=== PATIENT | male | born 1940 | race Caucasian/White ===

== ENCOUNTER 2020-06-08 04:20 | Inpatient (IN) | payer OTHER, BC ==
[2020-06-02 14:03] VITALS: BMI 26.6
[2020-06-08] MEDS ORDERED: LIDOCAINE 1%/EPI 1:100000 (50 ML MULTI DOSE VIAL) ONE (12:51)
[2020-06-08] MEDS ORDERED: PROPOFOL 20 ML ONE (14:12)
[2020-06-08] MEDS ORDERED: MIDAZOLAM HCL 2 MG/2 ML SINGLE DOSE VIAL ONE (14:15)
[2020-06-08] MEDS ORDERED: ceFAZolin SODIUM 1 GM VIAL IVPB ONE (14:25)
[2020-06-08] MEDS ORDERED: ceFAZolin SODIUM 1 GM VIAL ONE (14:30)
[2020-06-08] MEDS ORDERED: PROMETHAZINE HCL 25 MG/1 ML VIAL IVPUSH PRN (15:59)
[2020-06-08] MEDS ORDERED: ONDANSETRON 4 MG/2 ML VIAL IVPUSH PRN (15:59)
[2020-06-08] MEDS ORDERED: LACTATED RINGERS SOLUTION 1,000 ML IV SCH (16:00)
[2020-06-08] MEDS: ACETAMINOPHEN 325 MG TABLET (FP) PO SCH ×2 (17:00→22:57)
[2020-06-08] MEDS: SODIUM CHLORIDE 1,000 ML IV SCH ×2 (17:45→18:05)
[2020-06-08] MEDS: oxyCODONE HCL 5 MG TABLET PO PRN (21:16)
[2020-06-08] MEDS: HEPARIN NA (PORCINE) 5,000 UNITS/ML 1ML VIAL SQ SCH (21:16)
[2020-06-08] MEDS: ATORVASTATIN CA 10 MG TABLET (FP) PO SCH (21:17)
[2020-06-08] MEDS: MELATONIN 5 MG TABLETS PO SCH (21:17)
[2020-06-08] MEDS: CEFAZOLIN 1 GM/D5W 1 GM/50 ML BAG IVPB SCH (21:19)
[2020-06-08] MEDS: INSULIN SLIDING SCALE (NOVOLOG) 1 VIAL SQ SCH (21:25)
[2020-06-09] MEDS: ACETAMINOPHEN 325 MG TABLET (FP) PO SCH ×4 (05:42→22:20)
[2020-06-09] MEDS: CEFAZOLIN 1 GM/D5W 1 GM/50 ML BAG IVPB SCH ×2 (05:43→13:51)
[2020-06-09] MEDS: INSULIN SLIDING SCALE (NOVOLOG) 1 VIAL SQ SCH ×4 (06:35→21:30)
[2020-06-09] MEDS: TAMSULOSIN HCL 0.4 MG CAP PO SCH (08:22)
[2020-06-09] MEDS: HYDROCHLOROTHIAZIDE 12.5 MG CAPSULE (FP) PO SCH (09:23)
[2020-06-09] MEDS: LISINOPRIL 10 MG TABLET PO SCH (09:23)
[2020-06-09] MEDS: oxyCODONE HCL 5 MG TABLET PO PRN (09:23)
[2020-06-09] MEDS: DOCUSATE SODIUM 100 MG CAPSULE (FP) PO SCH (09:23)
[2020-06-09] MEDS: HEPARIN NA (PORCINE) 5,000 UNITS/ML 1ML VIAL SQ SCH ×2 (10:05→21:23)
[2020-06-09] MEDS ORDERED: INSULIN (NOVOLOG) ASPART 100 UNITS/ML 10ML VIAL ONE (11:51)
[2020-06-09 11:54] LABS: BASO % 0.8 % (0-2.0); EOS % 1.1 % (0-4.5); HEMOGLOBIN 11.7 GM/dL (11.7-16.9); LYMPH % 12.7 % (8-40); MCH 29.8 pg (25.7-33.7); MCHC 32.6 g/dl (32.0-35.9); MEAN CELL VOLUME 91.4 fl (80-96); MONO % 13.9 % (3.8-10.2); NEUT % 71.5 % (42.8-82.8); PLATELET COUNT 125 K/MM3 (134-434); RBC 3.94 M/mm3 (4.00-5.60); RDW 16.6 % (11.9-15.9); WHITE BLOOD COUNT 4.6 K/mm3 (4.0-10.0)
[2020-06-09 12:18] LABS: ALBUMIN 3.5 g/dl (3.4-5.0); BLOOD UREA NITROGEN 39.1 mg/dL (7-18)
[2020-06-09 12:21] LABS: CREATININE 1.3 mg/dL (0.55-1.3)
[2020-06-09 12:22] LABS: BILIRUBIN,TOTAL 0.4 mg/dL (0.2-1); TOT PROT 6.3 g/dl (6.4-8.2)
[2020-06-09] MEDS: SODIUM CHLORIDE 1,000 ML IV SCH (16:52)
[2020-06-09] MEDS: ATORVASTATIN CA 10 MG TABLET (FP) PO SCH (21:22)
[2020-06-09] MEDS: MELATONIN 5 MG TABLETS PO SCH (21:23)
[2020-06-10] MEDS: INSULIN SLIDING SCALE (NOVOLOG) 1 VIAL SQ SCH ×4 (06:32→21:44)
[2020-06-10] MEDS: ACETAMINOPHEN 325 MG TABLET (FP) PO SCH ×4 (06:33→22:02)
[2020-06-10 10:00] LABS: BASO % 0.6 % (0-2.0); EOS % 0.6 % (0-4.5); HEMATOCRIT 31.9 % (35.4-49); HEMOGLOBIN 10.7 GM/dL (11.7-16.9); LYMPH % 10.9 % (8-40); MCH 30.3 pg (25.7-33.7); MCHC 33.4 g/dl (32.0-35.9); MEAN CELL VOLUME 90.7 fl (80-96); MEAN PLT VOLUME 8.8 fl (7.5-11.1); MONO % 12.3 % (3.8-10.2); NEUT % 75.6 % (42.8-82.8); PLATELET COUNT 112 K/MM3 (134-434); RBC 3.52 M/mm3 (4.00-5.60); RDW 16.7 % (11.9-15.9); WHITE BLOOD COUNT 5.4 K/mm3 (4.0-10.0)
[2020-06-10] MEDS: HEPARIN NA (PORCINE) 5,000 UNITS/ML 1ML VIAL SQ SCH ×2 (10:01→21:33)
[2020-06-10] MEDS: LISINOPRIL 10 MG TABLET PO SCH (10:01)
[2020-06-10] MEDS: HYDROCHLOROTHIAZIDE 12.5 MG CAPSULE (FP) PO SCH (10:02)
[2020-06-10] MEDS: DOCUSATE SODIUM 100 MG CAPSULE (FP) PO SCH (10:02)
[2020-06-10] MEDS: TAMSULOSIN HCL 0.4 MG CAP PO SCH (10:02)
[2020-06-10 10:29] LABS: ALBUMIN 2.9 g/dl (3.4-5.0); CALCIUM 8.3 mg/dL (8.5-10.1)
[2020-06-10 10:30] LABS: BLOOD UREA NITROGEN 33.6 mg/dL (7-18); MAGNESIUM 1.8 mg/dL (1.8-2.4)
[2020-06-10 10:33] LABS: CREATININE 1.3 mg/dL (0.55-1.3)
[2020-06-10 10:34] LABS: TOT PROT 5.3 g/dl (6.4-8.2)
[2020-06-10 10:37] LABS: BILIRUBIN,TOTAL 0.4 mg/dL (0.2-1)
[2020-06-10] MEDS: oxyCODONE HCL 5 MG TABLET PO PRN ×2 (13:32→21:31)
[2020-06-10] MEDS: ATORVASTATIN CA 10 MG TABLET (FP) PO SCH (21:32)
[2020-06-10] MEDS: MELATONIN 5 MG TABLETS PO SCH (21:32)
[2020-06-11] MEDS ORDERED: ACETAMINOPHEN 1000 MG/100 ML BAG IVPB ONE (04:30)
[2020-06-11] MEDS: ACETAMINOPHEN 325 MG TABLET (FP) PO SCH ×4 (05:09→22:30)
[2020-06-11] MEDS: INSULIN SLIDING SCALE (NOVOLOG) 1 VIAL SQ SCH ×4 (06:10→22:40)
[2020-06-11 06:36] LABS: EPI CELLS 8 /uL (0-25.1); HYALINE CASTS 2 /uL (0-3.1); PH,URINE 5.5 (5.0-8.0); URINE APPEARANCE CLEAR; URINE BACTERIA 31 /uL (0-1359); URINE BILIRUBIN NEGATIVE (NEGATIVE); URINE COLOR YELLOW; URINE GLUCOSE (UA) NEGATIVE (NEGATIVE); URINE KETONE TRACE (NEGATIVE); URINE LEUK ESTERASE NEGATIVE (NEGATIVE); URINE NITRITE NEGATIVE (NEGATIVE); URINE PROTEIN 3+ (NEGATIVE); URINE RBC 18 /uL (0-23.9); URINE UROBILINOGEN 0.2 mg/dL (0.2-1.0); URINE WBC 11 /uL (0-25.8)
[2020-06-11 09:30] LABS: BASO % 0.3 % (0-2.0); EOS % 0.2 % (0-4.5); HEMATOCRIT 31.8 % (35.4-49); HEMOGLOBIN 10.6 GM/dL (11.7-16.9); MCH 30.3 pg (25.7-33.7); MCHC 33.4 g/dl (32.0-35.9); MEAN CELL VOLUME 90.7 fl (80-96); MEAN PLT VOLUME 8.5 fl (7.5-11.1); MONO % 9.4 % (3.8-10.2); NEUT % 81.1 % (42.8-82.8); PLATELET COUNT 111 K/MM3 (134-434); RBC 3.51 M/mm3 (4.00-5.60); RDW 16.7 % (11.9-15.9); WHITE BLOOD COUNT 6.4 K/mm3 (4.0-10.0)
[2020-06-11 09:32] LABS: BLOOD UREA NITROGEN 37.7 mg/dL (7-18); CALCIUM 8.2 mg/dL (8.5-10.1)
[2020-06-11 09:33] LABS: MAGNESIUM 1.6 mg/dL (1.8-2.4)
[2020-06-11 09:34] LABS: ALBUMIN 2.7 g/dl (3.4-5.0)
[2020-06-11 09:36] LABS: PHOSPHOROUS 3.3 mg/dL (2.5-4.9)
[2020-06-11 09:37] LABS: BILIRUBIN,TOTAL 0.5 mg/dL (0.2-1); CREATININE 1.5 mg/dL (0.55-1.3); TOT PROT 5.3 g/dl (6.4-8.2)
[2020-06-11] MEDS: LISINOPRIL 10 MG TABLET PO SCH (10:17)
[2020-06-11] MEDS: HYDROCHLOROTHIAZIDE 12.5 MG CAPSULE (FP) PO SCH (10:17)
[2020-06-11] MEDS: TAMSULOSIN HCL 0.4 MG CAP PO SCH (10:17)
[2020-06-11] MEDS: DOCUSATE SODIUM 100 MG CAPSULE (FP) PO SCH (10:17)
[2020-06-11] MEDS: HEPARIN NA (PORCINE) 5,000 UNITS/ML 1ML VIAL SQ SCH ×2 (10:23→22:31)
[2020-06-11] MEDS: ATORVASTATIN CA 10 MG TABLET (FP) PO SCH (22:30)
[2020-06-11] MEDS: MELATONIN 5 MG TABLETS PO SCH (22:30)
[2020-06-12] MEDS: ACETAMINOPHEN 325 MG TABLET (FP) PO SCH ×4 (06:29→22:41)
[2020-06-12] MEDS: INSULIN SLIDING SCALE (NOVOLOG) 1 VIAL SQ SCH ×4 (06:33→22:56)
[2020-06-12] MEDS ORDERED: MAGNESIUM OXIDE 400 MG TABLET (FP) PO ONE (08:15)
[2020-06-12] MEDS ORDERED: SODIUM CHLORIDE 1,000 ML IV SCH (08:15)
[2020-06-12 08:42] LABS: BASO % 0.2 % (0-2.0); EOS % 1.7 % (0-4.5); HEMATOCRIT 31.6 % (35.4-49); HEMOGLOBIN 10.3 GM/dL (11.7-16.9); LYMPH % 8.2 % (8-40); MCH 29.6 pg (25.7-33.7); MCHC 32.5 g/dl (32.0-35.9); MEAN CELL VOLUME 91.1 fl (80-96); MEAN PLT VOLUME 8.4 fl (7.5-11.1); MONO % 7.4 % (3.8-10.2); NEUT % 82.5 % (42.8-82.8); PLATELET COUNT 114 K/MM3 (134-434); RBC 3.47 M/mm3 (4.00-5.60); RDW 16.5 % (11.9-15.9); WHITE BLOOD COUNT 5.6 K/mm3 (4.0-10.0)
[2020-06-12 09:02] LABS: BLOOD UREA NITROGEN 40.4 mg/dL (7-18); CALCIUM 8.4 mg/dL (8.5-10.1)
[2020-06-12 09:06] LABS: CREATININE 1.5 mg/dL (0.55-1.3)
[2020-06-12] MEDS: HYDROCHLOROTHIAZIDE 12.5 MG CAPSULE (FP) PO SCH (09:54)
[2020-06-12] MEDS: DOCUSATE SODIUM 100 MG CAPSULE (FP) PO SCH (09:54)
[2020-06-12] MEDS: TAMSULOSIN HCL 0.4 MG CAP PO SCH (09:54)
[2020-06-12] MEDS: HEPARIN NA (PORCINE) 5,000 UNITS/ML 1ML VIAL SQ SCH ×2 (09:54→22:43)
[2020-06-12] MEDS: oxyCODONE HCL 5 MG TABLET PO PRN (10:12)
[2020-06-12] MEDS: MELATONIN 5 MG TABLETS PO SCH (22:41)
[2020-06-12] MEDS: ATORVASTATIN CA 10 MG TABLET (FP) PO SCH (22:41)
[2020-06-13] MEDS: ACETAMINOPHEN 325 MG TABLET (FP) PO SCH ×4 (06:56→22:58)
[2020-06-13] MEDS: INSULIN SLIDING SCALE (NOVOLOG) 1 VIAL SQ SCH ×4 (07:04→22:05)
[2020-06-13] MEDS ORDERED: INSULIN (NOVOLOG) ASPART 100 UNITS/ML 10ML VIAL ONE ×2 (07:26→11:09)
[2020-06-13] MEDS: DOCUSATE SODIUM 100 MG CAPSULE (FP) PO SCH (09:15)
[2020-06-13] MEDS: LISINOPRIL 10 MG TABLET PO SCH (09:15)
[2020-06-13] MEDS: HEPARIN NA (PORCINE) 5,000 UNITS/ML 1ML VIAL SQ SCH ×2 (09:15→21:38)
[2020-06-13] MEDS: TAMSULOSIN HCL 0.4 MG CAP PO SCH (09:15)
[2020-06-13] MEDS: HYDROCHLOROTHIAZIDE 12.5 MG CAPSULE (FP) PO SCH (09:15)
[2020-06-13 09:17] LABS: BASO % 0.4 % (0-2.0); EOS % 3.6 % (0-4.5); HEMATOCRIT 32.6 % (35.4-49); HEMOGLOBIN 10.7 GM/dL (11.7-16.9); LYMPH % 11.7 % (8-40); MCH 29.8 pg (25.7-33.7); MCHC 32.9 g/dl (32.0-35.9); MEAN CELL VOLUME 90.7 fl (80-96); MEAN PLT VOLUME 7.9 fl (7.5-11.1); MONO % 8.8 % (3.8-10.2); NEUT % 75.5 % (42.8-82.8); PLATELET COUNT 130 K/MM3 (134-434); RDW 16.4 % (11.9-15.9); WHITE BLOOD COUNT 4.9 K/mm3 (4.0-10.0)
[2020-06-13 09:46] LABS: BLOOD UREA NITROGEN 41.8 mg/dL (7-18); CALCIUM 8.4 mg/dL (8.5-10.1)
[2020-06-13 09:47] LABS: MAGNESIUM 1.8 mg/dL (1.8-2.4)
[2020-06-13 09:49] LABS: CREATININE 1.5 mg/dL (0.55-1.3)
[2020-06-13] MEDS: ZINC SULFATE 220 MG CAPSULE (FP) PO SCH (10:50)
[2020-06-13] MEDS: ASCORBIC ACID 500 MG TABLET (FP) PO SCH ×2 (10:50→21:38)
[2020-06-13] MEDS ORDERED: SODIUM CHLORIDE 500 ML IV STA (14:00)
[2020-06-13] MEDS: ATORVASTATIN CA 10 MG TABLET (FP) PO SCH (21:38)
[2020-06-13] MEDS: MELATONIN 5 MG TABLETS PO SCH (21:38)
[2020-06-14] MEDS: INSULIN SLIDING SCALE (NOVOLOG) 1 VIAL SQ SCH ×2 (06:23→11:48)
[2020-06-14] MEDS: ACETAMINOPHEN 325 MG TABLET (FP) PO SCH ×2 (06:23→11:28)
[2020-06-14] MEDS: TAMSULOSIN HCL 0.4 MG CAP PO SCH (08:31)
[2020-06-14 09:06] LABS: BASO % 0.4 % (0-2.0); HEMATOCRIT 32.3 % (35.4-49); HEMOGLOBIN 10.6 GM/dL (11.7-16.9); LYMPH % 13.5 % (8-40); MCH 29.6 pg (25.7-33.7); MCHC 32.8 g/dl (32.0-35.9); MEAN CELL VOLUME 90.3 fl (80-96); MEAN PLT VOLUME 7.9 fl (7.5-11.1); MONO % 10.4 % (3.8-10.2); NEUT % 72.7 % (42.8-82.8); PLATELET COUNT 126 K/MM3 (134-434); RBC 3.58 M/mm3 (4.00-5.60); RDW 16.3 % (11.9-15.9); WHITE BLOOD COUNT 3.9 K/mm3 (4.0-10.0)
[2020-06-14] MEDS: HEPARIN NA (PORCINE) 5,000 UNITS/ML 1ML VIAL SQ SCH (09:15)
[2020-06-14] MEDS: LISINOPRIL 10 MG TABLET PO SCH (09:15)
[2020-06-14] MEDS: ASCORBIC ACID 500 MG TABLET (FP) PO SCH (09:15)
[2020-06-14] MEDS: DOCUSATE SODIUM 100 MG CAPSULE (FP) PO SCH (09:15)
[2020-06-14] MEDS: ZINC SULFATE 220 MG CAPSULE (FP) PO SCH (09:15)
[2020-06-14 09:29] LABS: ALBUMIN 2.6 g/dl (3.4-5.0); BLOOD UREA NITROGEN 33.8 mg/dL (7-18)
[2020-06-14 09:30] LABS: CALCIUM 8.2 mg/dL (8.5-10.1); MAGNESIUM 1.9 mg/dL (1.8-2.4)
[2020-06-14 09:32] LABS: CREATININE 1.4 mg/dL (0.55-1.3); PHOSPHOROUS 2.8 mg/dL (2.5-4.9)
[2020-06-14 09:34] LABS: BILIRUBIN,TOTAL 0.4 mg/dL (0.2-1); TOT PROT 5.5 g/dl (6.4-8.2)
[2020-06-14] MEDS ORDERED: CHOLECALCIFEROL (VIT D3) 1,000 UNIT (25 MCG) TABLET PO SCH (10:00)
[2020-06-14] MEDS ORDERED: INSULIN (NOVOLOG) ASPART 100 UNITS/ML 10ML VIAL ONE (11:23)
[2020-06-14 11:43] VITALS: BP 150/74; PULSE 67; TEMP 99.3
== END 2020-06-14 12:42 | disposition home health service (06) | DRG 264 ==
LOC: JASUSAT 04:20 → JASU-SURG 04:20 → J2C 17:00 → J6S 18:05 → J8W 06-13 09:48
PROVIDERS: ADMIT Plastic Surgery
PROC: 0HRLX74 Replacement of Left Lower Leg Skin with Autologous Tissue Substitute, Partial Thickness, External Approach (ICD-10-PCS; principal; 2020-06-08)
PROC: 0KBT0ZZ Excision of Left Lower Leg Muscle, Open Approach (ICD-10-PCS; 2020-06-08)
PROC: 0KBS0ZZ Excision of Right Lower Leg Muscle, Open Approach (ICD-10-PCS; 2020-06-08)
PROC: 0HBHXZZ Excision of Right Upper Leg Skin, External Approach (ICD-10-PCS; 2020-06-08)
DX: E11.51 Type 2 diabetes mellitus with diabetic peripheral angiopathy without gangrene (principal); U07.1 COVID-19; L97.219 Non-pressure chronic ulcer of right calf with unspecified severity; L97.229 Non-pressure chronic ulcer of left calf with unspecified severity; N17.9 Acute kidney failure, unspecified; I83.012 Varicose veins of right lower extremity with ulcer of calf; I83.022 Varicose veins of left lower extremity with ulcer of calf; I10 Essential (primary) hypertension; E78.5 Hyperlipidemia, unspecified; G47.00 Insomnia, unspecified; N40.0 Benign prostatic hyperplasia without lower urinary tract symptoms
CPT/HCPCS: 36415; 71045-TC-FY; 80048; 80053; 80061; 81003; 82565; 82962; 83036; 83721; 83735; 84100; 84443; 84540; 85025; 87040; 87086; 88304-TC; 88305-TC; 94010; 94760; 97116-GP; 97162-GP; C9803; J0131; J1644; U0003

== ENCOUNTER 2021-12-28 07:14 | Day surgery (SDC) | payer OTHER, BC ==
[2021-12-28 09:23] LABS: BASO % 0.8 % (0-2.0); HEMATOCRIT 28.4 % (35.4-49); HEMOGLOBIN 9.5 GM/dL (11.7-16.9); LYMPH % 19.8 % (8-40); MCH 29.5 pg (25.7-33.7); MCHC 33.4 g/dl (32.0-35.9); MEAN CELL VOLUME 88.2 fl (80-96); MEAN PLT VOLUME 7.4 fl (7.5-11.1); NEUT % 72.4 % (42.8-82.8); PLATELET COUNT 160 10^3/uL (134-434); RBC 3.22 M/mm3 (4.00-5.60); RDW 18.3 % (11.9-15.9); WHITE BLOOD COUNT 4.4 K/mm3 (4.0-10.0)
[2021-12-28 09:52] LABS: CALCIUM 8.8 mg/dL (8.5-10.1)
[2021-12-28 09:53] LABS: ALBUMIN 2.9 g/dl (3.4-5.0); BLOOD UREA NITROGEN 66.1 mg/dL (7-18)
[2021-12-28 09:55] LABS: CREATININE 1.7 mg/dL (0.55-1.3)
[2021-12-28 09:57] LABS: BILIRUBIN,TOTAL 0.5 mg/dL (0.2-1); TOT PROT 6.6 g/dl (6.4-8.2)
[2021-12-28] MEDS ORDERED: EPOETIN ALFA-EPBX 10,000 UNIT/ML VIAL SQ ONE (10:00)
[2021-12-28 18:07] VITALS: BP 112/53; PULSE 71; RESP 20; TEMP 97.4
== END 2021-12-28 12:00 | disposition home or self-care (01) ==
LOC: JONCNONCHE 07:14
PROVIDERS: ATTEND Internal Medicine Hematology & Oncology
PROC: 3E013GC Introduction of Other Therapeutic Substance into Subcutaneous Tissue, Percutaneous Approach (ICD-10-PCS; principal; 2021-12-28)
DX: D64.9 Anemia, unspecified (principal)
CPT/HCPCS: 36415; 80053; 82728; 83540; 83550; 85025; 96372; Q5106

== ENCOUNTER 2022-01-11 07:10 | Day surgery (SDC) | payer OTHER, BC ==
[2022-01-11 13:03] LABS: HEMATOCRIT 27.3 % (35.4-49); HEMOGLOBIN 9.4 GM/dL (11.7-16.9); LYMPH % 23.6 % (8-40); MCH 30.5 pg (25.7-33.7); MCHC 34.4 g/dl (32.0-35.9); MEAN CELL VOLUME 88.5 fl (80-96); MEAN PLT VOLUME 7.1 fl (7.5-11.1); MONO % 11.1 % (3.8-10.2); NEUT % 64.3 % (42.8-82.8); PLATELET COUNT 131 10^3/uL (134-434); RBC 3.08 M/mm3 (4.00-5.60); RDW 17.7 % (11.9-15.9); WHITE BLOOD COUNT 4.1 K/mm3 (4.0-10.0)
[2022-01-11 13:25] LABS: BLOOD UREA NITROGEN 39.8 mg/dL (7-18); CALCIUM 8.4 mg/dL (8.5-10.1)
[2022-01-11 13:28] LABS: CREATININE 1.1 mg/dL (0.55-1.3)
[2022-01-11 13:30] LABS: BILIRUBIN,TOTAL 0.3 mg/dL (0.2-1); TOT PROT 6.3 g/dl (6.4-8.2)
[2022-01-11] MEDS ORDERED: Darbepoetin Alfa in Polysorbat 40 MCG/0.4 DISP.SYRIN SQ ONE (14:00)
[2022-01-11 14:26] VITALS: BP 152/63; PULSE 55; RESP 20; TEMP 98.3
== END 2022-01-11 16:33 | disposition home or self-care (01) ==
LOC: JONCCHEMO 07:10
PROVIDERS: ATTEND Internal Medicine Hematology & Oncology
PROC: 3E013GC Introduction of Other Therapeutic Substance into Subcutaneous Tissue, Percutaneous Approach (ICD-10-PCS; principal; 2022-01-11)
DX: D64.9 Anemia, unspecified (principal)
CPT/HCPCS: 36415; 80053; 85025; 96372; J0881

== ENCOUNTER 2024-04-11 09:44 | Emergency (ER) | payer OTHER, BC ==
[2024-04-11 09:51] VITALS: BP 147/66; PULSE 55; RESP 12; TEMP 97.9; BMI 25.8
[2024-04-11 11:41] LABS: BASO % 0.5 % (0-2.0); HEMOGLOBIN 11.9 GM/dL (11.7-16.9); LYMPH % 18.6 % (8-40); MCH 29.8 pg (25.7-33.7); MCHC 33.1 g/dl (32.0-35.9); MEAN CELL VOLUME 90.2 fl (80-96); MEAN PLT VOLUME 8.1 fl (7.5-11.1); MONO % 8.4 % (3.8-10.2); NEUT % 70.5 % (42.8-82.8); PLATELET COUNT 148 10^3/uL (134-434); RBC 3.99 M/mm3 (4.00-5.60); RDW 14.2 % (11.9-15.9); WHITE BLOOD COUNT 6.4 K/mm3 (4.0-10.0)
[2024-04-11 11:49] LABS: INR 1.01 (0.83-1.09); PROTHROMBIN TIME (PATIENT) 11.4 SEC (9.7-13.0)
[2024-04-11 11:51] LABS: ACTIVATED PTT 35.6 SECONDS (25.2-36.5)
[2024-04-11 12:20] LABS: ALBUMIN 3.3 g/dl (3.4-5.0); BLOOD UREA NITROGEN 29.9 mg/dL (7-18)
[2024-04-11 12:23] LABS: CREATININE 1.5 mg/dL (0.55-1.3)
[2024-04-11 12:24] LABS: PHOSPHOROUS 3.1 mg/dL (2.5-4.9)
[2024-04-11 12:25] LABS: BILIRUBIN,TOTAL 0.4 mg/dL (0.2-1); TOT PROT 6.1 g/dl (6.4-8.2)
== END 2024-04-11 13:09 | disposition home or self-care (01) ==
LOC: JER 09:44
DX: R19.7 Diarrhea, unspecified (principal); Z20.822 Contact with and (suspected) exposure to COVID-19
CPT/HCPCS: 0241U-QW; 36415; 71045-TC-FY; 80053; 83735; 84100; 85025; 85610; 85730; 99284-25

== ENCOUNTER 2024-11-04 12:33 | Emergency (ER) | payer OTHER, BC ==
[2024-11-04 12:45] VITALS: BP 149/75; PULSE 72; RESP 19; TEMP 97.9; BMI 26.6
== END 2024-11-04 14:56 | disposition home or self-care (01) ==
LOC: JER 12:33
DX: Z04.3 Encounter for examination and observation following other accident (principal); V00.841A Fall from standing electric scooter, initial encounter
CPT/HCPCS: 70450-TC; 72125-TC; 99284-25